=== PATIENT | male | born 1995 | race Caucasian/White ===

== ENCOUNTER 2020-07-05 14:19 | Emergency (ER) | payer BC ==
[2020-07-05 15:33] LABS: HEMOGLOBIN 16.2 gm/dl (14.0-17.5); RED BLOOD COUNT 5.2 M/UL (4.20-5.50); WHITE BLOOD COUNT 12.8 K/UL (4.5-11.0)
[2020-07-05 15:59] LABS: BUN/CREATININE RATIO 28 (0-10)
[2020-07-05] MEDS ORDERED: PEPCID20 MG PO (17:02)
[2020-07-05] MEDS ORDERED: PREDNISONE20 MG PO (17:02)
[2020-07-05] MEDS ORDERED: BENADRYL25 MG PO (17:02)
== END 2020-07-05 17:30 | disposition home or self-care (01) ==
LOC: ER1 14:19
PROVIDERS: Emergency Medicine
DX: L23.7 Allergic contact dermatitis due to plants, except food (principal); Z88.5 Allergy status to narcotic agent
CPT/HCPCS: 80053; 85025; 96374; 96375; 99283; J1200; J2930

== ENCOUNTER 2020-07-12 15:07 | Emergency (ER) | payer BC ==
[~2020-07-12 15:07] MED LIST: BENADRYL25 MG PO; PEPCID20 MG PO; PREDNISONE20 MG PO
== END 2020-07-12 15:55 | disposition home or self-care (01) ==
LOC: ER1 15:07
DX: L23.7 Allergic contact dermatitis due to plants, except food (principal); Z88.5 Allergy status to narcotic agent
CPT/HCPCS: 99282

== ENCOUNTER → 2021-09-23 | Outpatient (CLI) | payer BC | LOC: US 07:59 | DX: R10.11 Right upper quadrant pain (principal); I87.8 Other specified disorders of veins | CPT/HCPCS: 76700 ==